=== PATIENT | female | born 1960 | race Two or more races ===

== ENCOUNTER 2017-07-25 19:20 | Emergency (ER) | payer MEDICAID ==
[~2017-07-25] VITALS: Ht 165.1 cm; Wt 72.6 kg
[~2017-07-25 19:20] MED LIST: ASPIRIN81 MG ORAL; AZITHROMYCIN250 MG ORAL; CLINDAMYCIN HC150 MG ORAL; MACROBID100 MG ORAL; NITROFURANTOIN100 M2 ORAL; NKM; NORCO 5-325 TA1 EACH ORAL; PHENAZOPYRIDIN200 MG ORAL; TAMIFLU75 MG ORAL; TOPROL XL25 MG ORAL; magnesium citrate PO
[2017-07-25 19:35] VITALS: BP 118/69
[2017-07-25] MEDS ORDERED: Morphine Sulfate 4mg/ml Inj IVP ONE (20:15)
[2017-07-25 20:46] LABS: BASOPHILS % (AUTO) 1.3 % (0.0-2.0); EOSINOPHILS % (AUTO) 1.6 % (0.0-3.0); LYMPHOCYTES % (AUTO) 23.8 % (20.0-45.0); MEAN CORPUSCULAR HEMOGLOBIN 32.2 PG (27.0-31.0); MEAN CORPUSCULAR HGB CONC 34.5 G/DL (32.0-36.0); MEAN CORPUSCULAR VOLUME 93 FL (80-99); MEAN PLATELET VOLUME 8.8 FL (6.5-10.1); MONOCYTES % (AUTO) 10.6 % (1.0-10.0); NEUTROPHILS % (AUTO) 62.7 % (45.0-75.0); PLATELET COUNT 172 K/UL (150-450); RED BLOOD COUNT 4.36 M/UL (4.20-5.40); RED CELL DISTRIBUTION WIDTH 11.5 % (11.6-14.8); WHITE BLOOD COUNT 6.1 K/UL (4.8-10.8)
[2017-07-25 20:52] LABS: KETONES,URINE NEGATIVE (NEGATIVE); LEUKOCYTE ESTERASE ,URINE NEGATIVE (NEGATIVE); NITRITE,URINE NEGATIVE (NEGATIVE); PH,URINE 8 (4.5-8.0); PROTEIN,URINE NEGATIVE (NEGATIVE); UROBILINOGEN,URINE NORMAL MG/DL (0.0-1.0)
[2017-07-25 20:53] LABS: APPEARANCE,URINE CLEAR
[2017-07-25 21:06] LABS: ALANINE AMINOTRANSFERASE 14 U/L (3-33); ALBUMIN/GLOBULIN RATIO 1.9 (1.0-2.7); ANION GAP 13 (5-15); ASPARTATE AMINO TRANSFERASE 17 U/L (5-40); CALCIUM 9.1 mg/dL (8.6-10.2); CARBON DIOXIDE 26 mEQ/L (20-30); CHLORIDE 100 mEQ/L (98-107); GLOMERULAR FILTRATION RATE 57.6 mL/min (>60); HEMOLYSIS 4; LIPASE 38 U/L (< 60); POTASSIUM 3.9 mEQ/L (3.4-4.9); SODIUM 139 mEQ/L (135-145); TOTAL PROTEIN 6.5 g/dL (6.6-8.7)
[2017-07-25 21:20] VITALS: BP 129/93
[2017-07-25] MEDS ORDERED: ACETAMINOPHEN-1 EAC1 ORAL (22:08)
[2017-07-25] MEDS ORDERED: KEFLEX500 MG ORAL (22:08)
[2017-07-25 22:35] VITALS: BP 117/62
--- NOTE | 2017-07-26 09:59 | Diagnostic Imaging Report ---
Indication: Abdominal pain Technique: Continuous helical transaxial imaging of the abdomen and pelvis was obtained from the lung bases to the pubic symphysis. No intravenous contrast was administered. Coronal 2-D reformats were also obtained. Total Dose length Product (DLP): [address] Dose Index Volume (CTDIvol): 15.2, 0.15 mGy Comparison: 06/21/16 Findings: There is a persistent dilatation of the left renal pelvis as well as dilatation of the calyces consistent with hydronephrosis with high density intraluminally, which may be on the basis of recently administered contrast material or blood. Abrupt transition with a normal caliber ureter again noted at the UPJ. There is new left perinephric stranding which could be due to obstruction or infection/pyelonephritis. Please correlate clinically. There is no obstructing stone. The configuration of the dilated renal pelvis and calyces is unchanged from the last study in 2016. The right kidney is unremarkable. The urinary bladder is nondistended. Normal appendix noted. No free fluid or free air identified. Lung bases are clear. Gallbladder is unremarkable. Uterus is absent. There is narrowing of intervertebral discs and accompanying endplate osteophyte formation. Hypertrophied facet joints also demonstrated. Impression: Left perinephric stranding and hydronephrosis secondary to UPJ obstruction and/or pyelonephritis. Note that the hydronephrosis and abrupt transition at the UPJ configuration is unchanged from previous 2016 CT. Development of intraluminal high density may represent blood or recently administered contrast material. Clinical correlation is needed. No obstructing stone identified. Status post hysterectomy Spondylosis The CT scanner at [facility] is accredited by the [employer] and the scans are performed using dose optimization techniques as appropriate to a performed exam including Automatic Exposure control.
--- NOTE | 2017-07-26 14:35 | Emergency Room Report ---
History of Present Illness General Chief Complaint: Back Pain-No Injury Source: Patient Present Illness HPI 56-year-old female presents ED complaining of flank pain. States that left flank pain started around 12 PM today after she had an MRI with IV contrast done as outpatient. Patient MRI of her head for persistent headaches ordered by her PMD. Patient states right after the IV contrast was administered she developed left flank pain. Pain is throbbing, 8/10, nonradiating. No other aggravating factors. Denies dysuria or hematuria. Patient states she's had kidney pain in the past and has been there for for the same reason. Denies any other associated symptom Allergies: Coded Allergies: No Known Allergies (Unverified , 10/13/12) Patient History Past Medical History: none Past Surgical History: none Pertinent Family History: none Social History: Denies: smoking, alcohol use, drug use Now: No Immunizations: UTD Reviewed Nursing Documentation: PMH: Agreed, PSxH: Agreed Nursing Documentation-PMH Hx Cardiac Problems: Yes Review of Systems All Other Systems: negative except mentioned in HPI Physical Exam Vital Signs Date Time Temp Pulse Resp B/P (MAP) Pulse Ox O2 Delivery O2 Flow Rate FiO2 07/25/17 19:29 98.4 65 18 125/78 99 Room Air Sp02 EP Interpretation: reviewed, normal General Appearance: alert, GCS 15, non-toxic, mild distress Head: normocephalic, atraumatic Eyes: bilateral eye normal inspection, bilateral eye PERRL ENT: hearing grossly normal, normal pharynx, no angioedema, normal voice Neck: full range of motion, supple/symm/no masses Respiratory: chest non-tender, lungs clear, normal breath sounds, speaking full sentences Cardiovascular #1: regular rate, rhythm, no edema Cardiovascular #2: 2+ carotid (R), 2+ carotid (L), 2+ radial (R), 2+ radial (L) , 2+ dorsalis pedis (R), 2+ dorsalis pedis (L) Gastrointestinal: normal bowel sounds, non tender, soft, non-distended, no guarding, no rebound Rectal: deferred Genitourinary: normal inspection, CVA tenderness (L) Musculoskeletal: back normal, gait/station normal, normal range of motion, non- tender Neurologic: alert, oriented x3, responsive, motor strength/tone normal, sensory intact, speech normal Psychiatric: judgement/insight normal, memory normal, mood/affect normal, no suicidal/homicidal ideation Reflexes: 3+ bicep (R), 3+ bicep (L), 3+ tricep (R), 3+ tricep (L), 3+ knee (R) , 3+ knee (L) Skin: normal color, no rash, warm/dry, well hydrated Lymphatic: no adenopathy Medical Decision Making Diagnostic Impression: Primary Impression: Hydronephrosis of left kidney Additional Impression: Flank pain ER Course Hospital Course 56-year-old female presents with left flank pain after contrast administration Differential diagnosis includes- kidney stone, pyelonephritis, muscle strain Clinical course Patient placed on stretcher. After initial history and physical I ordered labs , IV fluids, pain medications and CT scan Labs - no leukocytosis, electrolytes ok, LFTs normal, UA unremarkable CT scan shows perinephric stranding around the left kidney consistent with contrast administration. Cannot rule out pyelonephritis Discussed findings with urologist Dr. Gonzalez; he agrees that with normal creatinine and negative UA patient can be discharged. Recommend followup with urology. Recommend antibiotics and urine culture I discussed findings with the patient. She understands the findings I feel this is a highly complex case requiring extensive working including EKG/ Rhythm strip, Xray/CT/US, Blood/urine lab work, repeat exams while in ED, and administration of strong opiates/narcotics for pain control, admission to hospital or close patient follow up. Diagnosis - hydronephrosis of left kidney, flank pain Stable and discharged to home with Rx Tylenol #3, Keflex. Followup with PMD/ urology. Return to ED if symptoms recur or worsen Labs Test 07/25/17 19:45 07/25/17 19:50 Urine Color Pale yellow Urine Appearance Clear Urine pH 8 (4.5-8.0) Urine Specific [place] 1.010 (1.005-1.035) Urine Protein Negative (NEGATIVE) Urine Glucose (UA) Negative (NEGATIVE) Urine Ketones Negative (NEGATIVE) Urine Occult Blood Negative (NEGATIVE) Urine Nitrite Negative (NEGATIVE) Urine Bilirubin Negative (NEGATIVE) Urine Urobilinogen Normal MG/DL (0.0-1.0) Urine Leukocyte Esterase Negative (NEGATIVE) White Blood Count 6.1 K/UL (4.8-10.8) Red Blood Count 4.36 M/UL (4.20-5.40) Hemoglobin 14.0 G/DL (12.0-16.0) Hematocrit 40.7 % (37.0-47.0) Mean Corpuscular Volume 93 FL (80-99) Mean Corpuscular Hemoglobin 32.2 PG (27.0-31.0) Mean Corpuscular Hemoglobin Concent 34.5 G/DL (32.0-36.0) Red Cell Distribution Width 11.5 % (11.6-14.8) Platelet Count 172 K/UL (150-450) Mean Platelet Volume 8.8 FL (6.5-10.1) Neutrophils (%) (Auto) 62.7 % (45.0-75.0) Lymphocytes (%) (Auto) 23.8 % (20.0-45.0) Monocytes (%) (Auto) 10.6 % (1.0-10.0) Eosinophils (%) (Auto) 1.6 % (0.0-3.0) Basophils (%) (Auto) 1.3 % (0.0-2.0) Sodium Level 139 mEQ/L (135-145) Potassium Level 3.9 mEQ/L (3.4-4.9) Chloride Level 100 mEQ/L (98-107) Carbon Dioxide Level 26 mEQ/L (20-30) Anion Gap 13 (5-15) Blood Urea Nitrogen 14 mg/dL (7-23) Creatinine 1.0 mg/dL (0.5-0.9) Estimat Glomerular Filtration Rate 57.6 mL/min (>60) Glucose Level 90 mg/dL (74-106) Calcium Level 9.1 mg/dL (8.6-10.2) Total Bilirubin < 0.2 mg/dL (0.0-1.2) Aspartate Amino Transf (AST/SGOT) 17 U/L (5-40) Alanine Aminotransferase (ALT/SGPT) 14 U/L (3-33) Alkaline Phosphatase 55 U/L (35-104) Total Protein 6.5 g/dL (6.6-8.7) Albumin 4.3 g/dL (3.5-5.2) Globulin 2.2 g/dL Albumin/Globulin Ratio 1.9 (1.0-2.7) Lipase 38 U/L (< 60) CT/MRI/US Diagnostic Results CT/MRI/US Diagnostic Results : Imaging Test Ordered: CT A/P Impression perinephric stranding around L kidney c/w contrast administration. cannot rule out pyelonephritis Last Vital Signs Date Time Temp Pulse Resp B/P (MAP) Pulse Ox O2 Delivery O2 Flow Rate FiO2 07/25/17 22:35 98.3 65 16 117/62 99 Room Air Status: improved Disposition: HOME, SELF-CARE Condition: Stable Scripts Acetaminophen With Codeine (T#3) (TYLENOL #3 TAB*) Y Tab 1 TAB ORAL Q8H Y for For Pain, #20 TAB Prov: EUNICE VILLARREAL M.D. 07/25/17 Cephalexin* (KEFLEX*) 500 Mg Capsule 500 MG ORAL Q6H, #28 CAP 0 Refills Prov: EUNICE VILLARREAL M.D. 07/25/17 Referrals: [facility],REFERRING (PCP) Kody Gonzalez MD Patient Instructions: Hydronephrosis EUNICE VILLARREAL M.D. Jul 26, 2017 14:35
== END 2017-07-25 22:35 | disposition home or self-care (01) ==
LOC: EMR 20:01
DX: N13.30 Unspecified hydronephrosis (principal); Z90.710 Acquired absence of both cervix and uterus; M47.9 Spondylosis, unspecified
CPT/HCPCS: 36415; 74176; 80053; 81003; 83690; 85025; 96374; 96375; 99284; J2270; J2405

== ENCOUNTER 2017-08-09 03:31 | Emergency (ER) | payer MEDICAID ==
[~2017-08-09] VITALS: Ht 165.1 cm; Wt 71.7 kg
[~2017-08-09 03:31] MED LIST changes: +ACETAMINOPHEN-1 EAC1 ORAL; +KEFLEX500 MG ORAL
[2017-08-09 03:45] VITALS: BP 127/87
[2017-08-09 04:26] LABS: EOSINOPHILS % (AUTO) 1.9 % (0.0-3.0); LYMPHOCYTES % (AUTO) 28.5 % (20.0-45.0); MEAN CORPUSCULAR HEMOGLOBIN 31.3 PG (27.0-31.0); MEAN CORPUSCULAR HGB CONC 33.3 G/DL (32.0-36.0); MEAN CORPUSCULAR VOLUME 94 FL (80-99); MEAN PLATELET VOLUME 7.4 FL (6.5-10.1); MONOCYTES % (AUTO) 7.9 % (1.0-10.0); NEUTROPHILS % (AUTO) 60.8 % (45.0-75.0); PLATELET COUNT 183 K/UL (150-450); RED BLOOD COUNT 4.29 M/UL (4.20-5.40); RED CELL DISTRIBUTION WIDTH 11.8 % (11.6-14.8); WHITE BLOOD COUNT 7.6 K/UL (4.8-10.8)
--- NOTE | 2017-08-09 04:26 | Emergency Room Report ---
History of Present Illness General Chief Complaint: Back Pain-No Injury Source: Patient Present Illness HPI 56-year-old female with left-sided chronic hydronephrosis presenting with left flank pain. Patient was seen in the emergency room on July 25 after getting IV contrast, patient developed left knee pain at that time. Patient's CAT scan showed persistent hydronephrosis on the left side, unchanged from prior CT in 2016, there was no obstructing stone. Patient was diagnosed with left hydronephrosis/left pyelonephritis Patient not complaining of left flank pain, developed since 10 PM last night, left flank nonradiating. No fever no chills no nausea vomiting. No dysuria or hematuria Allergies: Coded Allergies: No Known Allergies (Unverified , 10/13/12) Patient History Past Medical History: see triage record Past Surgical History: none Pertinent Family History: none Reviewed Nursing Documentation: PMH: Agreed, PSxH: Agreed Nursing Documentation-PMH Hx Cardiac Problems: Yes Review of Systems All Other Systems: negative except mentioned in HPI Physical Exam Vital Signs Date Time Temp Pulse Resp B/P (MAP) Pulse Ox O2 Delivery O2 Flow Rate FiO2 08/09/17 03:36 97.5 66 18 127/87 99 Room Air Sp02 EP Interpretation: reviewed, normal General Appearance: normal inspection, well appearing, no apparent distress, alert, GCS 15, non-toxic Head: normocephalic, atraumatic Eyes: bilateral eye normal inspection, bilateral eye PERRL, bilateral eye EOMI ENT: normal ENT inspection, normal pharynx, normal voice, moist mucus membranes Neck: normal inspection, full range of motion, supple Respiratory: normal inspection, lungs clear, normal breath sounds, no respiratory distress, no retraction, no wheezing, speaking full sentences, chest symmetrical Cardiovascular #1: normal inspection, regular rate, rhythm, no edema, normal capillary refill Cardiovascular #2: 2+ radial (R), 2+ radial (L) Gastrointestinal: normal inspection, non tender, soft, non-distended, no guarding Genitourinary: other - Mild left CVA tenderness Musculoskeletal: normal inspection, back normal, normal range of motion, non- tender Neurologic: normal inspection, alert, oriented x3, responsive, motor strength/ tone normal, sensory intact, normal gait, speech normal Psychiatric: normal inspection, judgement/insight normal, memory normal Skin: normal inspection, normal color, no rash, warm/dry, well hydrated, normal turgor Medical Decision Making Diagnostic Impression: Primary Impression: Hydronephrosis of left kidney Additional Impression: Pyelonephritis ER Course 56-year-old female with left flank pain History of left-sided hydronephrosis and 2016 DDX: Chronic left hydronephrosis due to unknown origin Pyelonephritis/UTI/kidney stone Plan: Obtain labs, ua, ucx IV fluids pain control ER course: Patient has remained stable during ED stay. Bedside renal ultrasound showing left-sided moderate/severe hydronephrosis, right side normal Patient has had prior CTs in the past showing this left-sided moderate to severe hydronephrosis Patient has 15-20 WBCs in urine, mild left-sided CVA tenderness, will prescribed Bactrim Patient states that she feels much better after fluids and pain medicine Continues to appear nontoxic, vital signs stable Will discharge Disposition: Patient is to be discharged to home. Prescriptions given are bactrim Patient is instructed to follow up with their primary care doctor within 5 days. Patient is instructed to follow up with urology within 2 days. Strict return precautions discussed with patient such as fever, chills, worsening/severe pain, nausea, vomiting, which may indicate severe illness. Patient verbalizes understanding and agrees with plan. Please note that this Emergency Department Report was dictated using [employer] steamer technology software, occasionally this can lead to erroneous entry secondary to interpretation by the dictation equipment Laboratory Tests Test 08/09/17 03:40 08/09/17 04:10 Urine Color Pale yellow Urine Appearance Clear Urine pH 6 (4.5-8.0) Urine Specific [place] 1.025 (1.005-1.035) Urine Protein Negative (NEGATIVE) Urine Glucose (UA) Negative (NEGATIVE) Urine Ketones Negative (NEGATIVE) Urine Occult Blood Negative (NEGATIVE) Urine Nitrite Negative (NEGATIVE) Urine Bilirubin Negative (NEGATIVE) Urine Urobilinogen Normal MG/DL (0.0-1.0) Urine Leukocyte Esterase 2+ (NEGATIVE) H Urine RBC 0-2 /HPF (0 - 2) Urine WBC 15-20 /HPF (0 - 2) H Urine Squamous Epithelial Cells Few /LPF (NONE/OCC) Urine Bacteria Few /HPF (NONE) White Blood Count 7.6 K/UL (4.8-10.8) Red Blood Count 4.29 M/UL (4.20-5.40) Hemoglobin 13.4 G/DL (12.0-16.0) Hematocrit 40.4 % (37.0-47.0) Mean Corpuscular Volume 94 FL (80-99) Mean Corpuscular Hemoglobin 31.3 PG (27.0-31.0) H Mean Corpuscular Hemoglobin Concent 33.3 G/DL (32.0-36.0) Red Cell Distribution Width 11.8 % (11.6-14.8) Platelet Count 183 K/UL (150-450) Mean Platelet Volume 7.4 FL (6.5-10.1) Neutrophils (%) (Auto) 60.8 % (45.0-75.0) Lymphocytes (%) (Auto) 28.5 % (20.0-45.0) Monocytes (%) (Auto) 7.9 % (1.0-10.0) Eosinophils (%) (Auto) 1.9 % (0.0-3.0) Basophils (%) (Auto) 1.0 % (0.0-2.0) Sodium Level 144 mEQ/L (135-145) Potassium Level 3.9 mEQ/L (3.4-4.9) Chloride Level 108 mEQ/L (98-107) H Carbon Dioxide Level 25 mEQ/L (20-30) Anion Gap 11 (5-15) Blood Urea Nitrogen 26 mg/dL (7-23) H Creatinine 1.0 mg/dL (0.5-0.9) H Estimate Glomerular Filtration Rate 57.6 mL/min (>60) Glucose Level 95 mg/dL (74-106) Calcium Level 9.1 mg/dL (8.6-10.2) Total Bilirubin 0.3 mg/dL (0.0-1.2) Aspartate Amino Transferase (AST) 13 U/L (5-40) Alanine Aminotransferase (ALT) 12 U/L (3-33) Alkaline Phosphatase 52 U/L (35-104) Total Protein 6.1 g/dL (6.6-8.7) L Albumin 4.1 g/dL (3.5-5.2) Globulin 2.0 g/dL Albumin/Globulin Ratio 2.0 (1.0-2.7) Last Vital Signs Date Time Temp Pulse Resp B/P (MAP) Pulse Ox O2 Delivery O2 Flow Rate FiO2 08/09/17 03:36 97.5 66 18 127/87 99 Room Air Disposition: HOME, SELF-CARE Condition: Improved Scripts Trimethoprim/Sulfamethoxazole 160/800* (BACTRIM DS TABLET*) 1 Each Tablet 1 TAB ORAL Q12H for 7 Days, #14 TAB 0 Refills Prov: Arnol Grullon M.D. 08/09/17 Referrals: NON PHYSICIAN (PCP) Arnol Grullon M.D. Aug 09, 2017 04:26
[2017-08-09] MEDS ORDERED: Morphine Sulfate 4mg/ml Inj IVP ONE (04:30)
[2017-08-09 04:38] LABS: APPEARANCE,URINE CLEAR; KETONES,URINE NEGATIVE (NEGATIVE); LEUKOCYTE ESTERASE ,URINE 2+ (NEGATIVE); NITRITE,URINE NEGATIVE (NEGATIVE); PH,URINE 6 (4.5-8.0); PROTEIN,URINE NEGATIVE (NEGATIVE); UROBILINOGEN,URINE NORMAL MG/DL (0.0-1.0)
[2017-08-09 04:46] LABS: CALCIUM 9.1 mg/dL (8.6-10.2); GLOMERULAR FILTRATION RATE 57.6 mL/min (>60); POTASSIUM 3.9 mEQ/L (3.4-4.9); TOTAL PROTEIN 6.1 g/dL (6.6-8.7)
[2017-08-09 04:53] LABS: BACTERIA,URINE FEW /HPF; RBC,URINE 0-2 /HPF (0 - 2); SQUAMOUS EPITHELIAL CELL,UR FEW /LPF (NONE/OCC); WBC,URINE 15-20 /HPF (0 - 2)
[2017-08-09] MEDS ORDERED: BACTRIM DS TAB1 EAC1 ORAL (06:06)
[2017-08-09 06:17] VITALS: BP 121/84
== END 2017-08-09 06:17 | disposition home or self-care (01) ==
LOC: EMR 03:55
DX: N13.30 Unspecified hydronephrosis (principal); N12 Tubulo-interstitial nephritis, not specified as acute or chronic
CPT/HCPCS: 36415; 80053; 81003; 85025; 87086; 87181; 96361; 96374; 99284; J2270

== ENCOUNTER 2018-05-05 21:28 | Emergency (ER) | payer MEDICAID ==
[~2018-05-05] VITALS: Ht 165.1 cm; Wt 71.2 kg
[~2018-05-05 21:28] MED LIST changes: +BACTRIM DS TAB1 EAC1 ORAL
[2018-05-05] MEDS ORDERED: Morphine Sulfate 4mg/ml Inj IVP ONE (22:15)
--- NOTE | 2018-05-05 22:27 | Emergency Room Report ---
History of Present Illness General Chief Complaint: Back Pain-No Injury Source: Patient Present Illness HPI This is a 57-year-old female with a history of left hydronephrosis. She scheduled for stent placement/surgery pending authorization. She presents with left flank pain is been ongoing for 2 days. Worse with movement. No dysuria frequency. Similar symptom in the past. No relief with ibuprofen. No nausea no vomiting. Pain is 9 out of 10. Denies any hematuria or fever. She has multiple CT scan in the past which is negative for stone but has stenosis and hydronephrosis Allergies: Coded Allergies: No Known Allergies (Unverified , 10/13/12) Patient History Past Medical History: see triage record, old chart reviewed Past Surgical History: other Pertinent Family History: none Social History: Denies: smoking Now: No Immunizations: other Reviewed Nursing Documentation: PMH: Agreed; PSxH: Agreed Nursing Documentation-PMH Hx Cardiac Problems: Yes Review of Systems Eye: Denies: eye pain, blurred vision ENT: Denies: ear pain, nose congestion, throat swelling Respiratory: Denies: cough, shortness of breath Cardiovascular: Denies: chest pain, palpitations Gastrointestinal: Denies: abdominal pain, diarrhea, nausea, vomiting Genitourinary: Reports: pain Musculoskeletal: Denies: back pain, joint pain Skin: Denies: rash Neurological: Denies: headache, numbness Endocrine: Denies: increased thirst, increased urine Hematologic/Lymphatic: Denies: easy bruising All Other Systems: negative except mentioned in HPI Physical Exam Vital Signs Date Time Temp Pulse Resp B/P (MAP) Pulse Ox O2 Delivery O2 Flow Rate FiO2 05/05/18 21:37 98.0 61 18 93/54 96 Room Air 98.1 vitals unremarkable Sp02 EP Interpretation: reviewed, normal General Appearance: well appearing, no apparent distress, alert Head: normocephalic, atraumatic Eyes: bilateral eye PERRL, bilateral eye EOMI ENT: hearing grossly normal, normal pharynx Neck: full range of motion, supple, no meningismus Respiratory: chest non-tender, lungs clear, normal breath sounds Cardiovascular #1: regular rate, rhythm, no murmur Gastrointestinal: normal bowel sounds, non tender, no mass, no organomegaly, no bruit, non-distended Musculoskeletal: back normal, gait/station normal, normal range of motion Psychiatric: mood/affect normal Skin: warm/dry Medical Decision Making Diagnostic Impression: Primary Impression: Hydronephrosis of left kidney Additional Impression: UTI (lower urinary tract infection) ER Course Patient with left flank pain. She does have a mild UTI. She is increased risk for infection secondary to stenosis and hydronephrosis. No evidence of kidney failure. We'll discharge home. Her pain is well-controlled now. Lab Results Impression labs unremarkable Last Vital Signs Date Time Temp Pulse Resp B/P (MAP) Pulse Ox O2 Delivery O2 Flow Rate FiO2 05/05/18 21:37 98.0 61 18 93/54 96 Room Air 98.1 Status: improved Disposition: HOME, SELF-CARE Condition: Stable Scripts Cephalexin* (KEFLEX*) 500 Mg Capsule 500 MG ORAL TID, #21 CAP Prov: NANI CHATTERJEE M.D. 05/05/18 Hydrocodone/Acetaminophen 5-325* (HYDROCODONE/ACETAMINOPHEN 5-325*) 1 Each Tablet 1 TAB ORAL Q6H PRN for For Pain, #15 TAB 0 Refills Prov: NANI CHATTERJEE M.D. 05/05/18 Additional Instructions: follow-up your doctor in 7 days. Return if symptom worsen. NANI CHATTERJEE M.D. May 05, 2018 22:27
[2018-05-05 22:28] LABS: BASOPHILS % (AUTO) 1.3 % (0.0-2.0); BILIRUBIN, URINE NEGATIVE (NEGATIVE); COLOR,URINE AMBER; EOSINOPHILS % (AUTO) 3.3 % (0.0-3.0); GLUCOSE, URINE (UA) NEGATIVE (NEGATIVE); HEMATOCRIT 39.1 % (37.0-47.0); KETONES,URINE NEGATIVE (NEGATIVE); LEUKOCYTE ESTERASE ,URINE 1+ (NEGATIVE); LYMPHOCYTES % (AUTO) 45.3 % (20.0-45.0); MEAN CORPUSCULAR VOLUME 93 FL (80-99); MONOCYTES % (AUTO) 7.2 % (1.0-10.0); NEUTROPHILS % (AUTO) 42.8 % (45.0-75.0); NITRITE,URINE NEGATIVE (NEGATIVE); PH,URINE 6 (4.5-8.0); PLATELET COUNT 162 K/UL (150-450); PROTEIN,URINE 1+ (NEGATIVE); RED BLOOD COUNT 4.19 M/UL (4.20-5.40); RED CELL DISTRIBUTION WIDTH 11.4 % (11.6-14.8); UROBILINOGEN,URINE 1 MG/DL (0.0-1.0); WHITE BLOOD COUNT 6.6 K/UL (4.8-10.8)
[2018-05-05 22:32] LABS: APPEARANCE,URINE SLIGHTLY CLOUDY
[2018-05-05 22:42] LABS: ANION GAP 9 mmol/L (5-15); BLOOD UREA NITROGEN 21 mg/dL (7-18); CALCIUM 8.5 MG/DL (8.5-10.1); CARBON DIOXIDE 27 MMOL/L (21-32); CHLORIDE 108 MMOL/L (98-107); CREATININE 0.8 MG/DL (0.55-1.30); POTASSIUM 3.6 MMOL/L (3.5-5.1); SODIUM 144 MMOL/L (136-145)
[2018-05-05] MEDS ORDERED: cefTRIAXone 1 GM in NS 55 ML IVPB ONE (22:45)
[2018-05-05 22:55] VITALS: BP 102/56
[2018-05-05] MEDS ORDERED: CEPHALEXIN500 MG ORAL (23:01)
[2018-05-05] MEDS ORDERED: HYDROCODON-ACE1 EA15 ORAL (23:01)
[2018-05-05 23:55] VITALS: BP 101/57
[2018-05-06 01:13] VITALS: BP 101/57
== END 2018-05-06 01:10 | disposition home or self-care (01) ==
LOC: EMR 21:55
DX: N13.30 Unspecified hydronephrosis (principal); N39.0 Urinary tract infection, site not specified
CPT/HCPCS: 36415; 80048; 81003; 85025; 87086; 96360; 96365; 96374; 96375; 99284; J0696; J2270; J2405

== ENCOUNTER 2018-05-06 19:26 | Emergency (ER) | payer MEDICAID ==
[~2018-05-06] VITALS: Ht 165.1 cm; Wt 71.2 kg
[~2018-05-06 19:26] MED LIST changes: +CEPHALEXIN500 MG ORAL; +HYDROCODON-ACE1 EA15 ORAL
[2018-05-06 20:00] VITALS: BP 125/68
[2018-05-06] MEDS ORDERED: Lidocaine 2% 100mg/5ml Carp IV ONE (20:00)
[2018-05-06] MEDS ORDERED: Morphine Sulfate 4mg/ml Inj IVP ONE (20:00)
[2018-05-06] MEDS ORDERED: Ketorolac 30mg Inj IV ONE (20:00)
[2018-05-06 20:22] LABS: APPEARANCE,URINE CLEAR; BILIRUBIN, URINE NEGATIVE (NEGATIVE); COLOR,URINE PALE YELLOW; GLUCOSE, URINE (UA) NEGATIVE (NEGATIVE); KETONES,URINE NEGATIVE (NEGATIVE); LEUKOCYTE ESTERASE ,URINE 1+ (NEGATIVE); NITRITE,URINE NEGATIVE (NEGATIVE); PH,URINE 7 (4.5-8.0); PROTEIN,URINE NEGATIVE (NEGATIVE); UROBILINOGEN,URINE NORMAL MG/DL (0.0-1.0)
[2018-05-06 20:32] LABS: BASOPHILS % (AUTO) 1.2 % (0.0-2.0); EOSINOPHILS % (AUTO) 2.1 % (0.0-3.0); HEMATOCRIT 41.2 % (37.0-47.0); HEMOGLOBIN 13.7 G/DL (12.0-16.0); LYMPHOCYTES % (AUTO) 35.7 % (20.0-45.0); MEAN CORPUSCULAR VOLUME 92 FL (80-99); MONOCYTES % (AUTO) 8.1 % (1.0-10.0); NEUTROPHILS % (AUTO) 52.9 % (45.0-75.0); PLATELET COUNT 165 K/UL (150-450); RED BLOOD COUNT 4.46 M/UL (4.20-5.40); RED CELL DISTRIBUTION WIDTH 11.5 % (11.6-14.8); WHITE BLOOD COUNT 9.6 K/UL (4.8-10.8)
[2018-05-06 20:41] LABS: ANION GAP 7 mmol/L (5-15); BLOOD UREA NITROGEN 16 mg/dL (7-18); CALCIUM 8.7 MG/DL (8.5-10.1); CARBON DIOXIDE 28 MMOL/L (21-32); CHLORIDE 106 MMOL/L (98-107); POTASSIUM 3.9 MMOL/L (3.5-5.1); SODIUM 141 MMOL/L (136-145)
[2018-05-06 20:55] LABS: ALANINE AMINOTRANSFERASE 26 U/L (12-78); ALBUMIN 3.8 G/DL (3.4-5.0); ALBUMIN/GLOBULIN RATIO 1.3 (1.0-2.7); ALKALINE PHOSPHATASE 56 U/L (46-116); ASPARTATE AMINO TRANSFERASE 18 U/L (15-37); BILIRUBIN,TOTAL 0.2 MG/DL (0.2-1.0)
[2018-05-06 21:43] VITALS: BP 125/68
--- NOTE | 2018-05-07 10:51 | Diagnostic Imaging Report ---
Indication: Hydronephrosis. Follow-up. Abdominal pain Technique: Grayscale and duplex Doppler imaging of the kidneys performed. Comparison: CT 07/25/2017 Findings: There is persistent moderate hydronephrosis in the left kidney demonstrated. This was noted on 07/25/2017 CT abdomen and pelvis. The right kidney is unremarkable. The left kidney is enlarged measuring 13.5 cm. Right kidney is 11.3 cm. IVC and bladder appear unremarkable. IMPRESSION: Moderate left hydronephrosis.
--- NOTE | 2018-05-08 05:39 | Emergency Room Report ---
History of Present Illness General Chief Complaint: Pain Source: Patient Present Illness HPI Patient is a 57-year-old female who presented after increased flank pain. Patient reports having prior history of kidney stones. Patient recently started on antibiotics after a reported infection from renal stones. Patient was noted to have prior history of hydronephrosis on left kidney.The patient states that he had been having increased patient states she been having increased pain which was not relieved by medications. Patient had not been having any fever or vomiting.The patient reports having previous procedure scheduling for management of stone. Allergies: Coded Allergies: No Known Allergies (Unverified , 10/13/12) Patient History Last Menstrual Period: n/a Reviewed Nursing Documentation: PMH: Agreed; PSxH: Agreed Nursing Documentation-PM Past Medical History: No History, Except For Hx Cardiac Problems: Yes Review of Systems All Other Systems: negative except mentioned in HPI Physical Exam Vital Signs Date Time Temp Pulse Resp B/P (MAP) Pulse Ox O2 Delivery O2 Flow Rate FiO2 05/06/18 19:37 97.9 55 16 132/78 97 Room Air 97.9 General Appearance: well appearing, no apparent distress, alert, GCS 15 Head: normocephalic, atraumatic ENT: hearing grossly normal, normal voice Neck: full range of motion, supple Respiratory: no respiratory distress, speaking full sentences Cardiovascular #1: normal inspection Gastrointestinal: normal inspection, normal bowel sounds, non tender Musculoskeletal: no calf tenderness Neurologic: normal gait Psychiatric: mood/affect normal Skin: no rash Medical Decision Making Diagnostic Impression: Primary Impression: Hydronephrosis, left ER Course Patient presented for flank pain. Differential diagnosis included was not limited to pneumonia, renal stone, rib fracture, pulmonary embolism, ulcer, enteritis, pyelonephritis among others. Because of complexity of patient's case laboratory testing and imaging studies were ordered. Abdominal ultrasound showed evidence of continued left-sided hydronephrosis. Patient was noted to have prior history of stones. Patient urine appears to be less infected. The patient was offered admission for further evaluation and management of stones and she stated she did not want to be hospitalized. The patient is advised to return if she began having worsening pain, persistent vomiting or change mind about being admitted. Labs Test 05/06/18 19:50 White Blood Count 9.6 K/UL (4.8-10.8) Red Blood Count 4.46 M/UL (4.20-5.40) Hemoglobin 13.7 G/DL (12.0-16.0) Hematocrit 41.2 % (37.0-47.0) Mean Corpuscular Volume 92 FL (80-99) Mean Corpuscular Hemoglobin 30.7 PG (27.0-31.0) Mean Corpuscular Hemoglobin Concent 33.2 G/DL (32.0-36.0) Red Cell Distribution Width 11.5 % (11.6-14.8) Platelet Count 165 K/UL (150-450) Mean Platelet Volume 7.9 FL (6.5-10.1) Neutrophils (%) (Auto) 52.9 % (45.0-75.0) Lymphocytes (%) (Auto) 35.7 % (20.0-45.0) Monocytes (%) (Auto) 8.1 % (1.0-10.0) Eosinophils (%) (Auto) 2.1 % (0.0-3.0) Basophils (%) (Auto) 1.2 % (0.0-2.0) Urine Color Pale yellow Urine Appearance Clear Urine pH 7 (4.5-8.0) Urine Specific [place] 1.010 (1.005-1.035) Urine Protein Negative (NEGATIVE) Urine Glucose (UA) Negative (NEGATIVE) Urine Ketones Negative (NEGATIVE) Urine Occult Blood Negative (NEGATIVE) Urine Nitrite Negative (NEGATIVE) Urine Bilirubin Negative (NEGATIVE) Urine Urobilinogen Normal MG/DL (0.0-1.0) Urine Leukocyte Esterase 1+ (NEGATIVE) Urine RBC 0-2 /HPF (0 - 2) Urine WBC 2-4 /HPF (0 - 2) Urine Squamous Epithelial Cells Few /LPF (NONE/OCC) Urine Bacteria Few /HPF (NONE) Sodium Level 141 MMOL/L (136-145) Potassium Level 3.9 MMOL/L (3.5-5.1) Chloride Level 106 MMOL/L (98-107) Carbon Dioxide Level 28 MMOL/L (21-32) Anion Gap 7 mmol/L (5-15) Blood Urea Nitrogen 16 mg/dL (7-18) Creatinine 1.0 MG/DL (0.55-1.30) Estimat Glomerular Filtration Rate 57.4 mL/min (>60) Glucose Level 86 MG/DL (74-106) Calcium Level 8.7 MG/DL (8.5-10.1) Total Bilirubin 0.2 MG/DL (0.2-1.0) Aspartate Amino Transf (AST/SGOT) 18 U/L (15-37) Alanine Aminotransferase (ALT/SGPT) 26 U/L (12-78) Alkaline Phosphatase 56 U/L (46-116) Total Protein 6.7 G/DL (6.4-8.2) Albumin 3.8 G/DL (3.4-5.0) Globulin 2.9 g/dL Albumin/Globulin Ratio 1.3 (1.0-2.7) Lipase 158 U/L (73-393) Last Vital Signs Date Time Temp Pulse Resp B/P (MAP) Pulse Ox O2 Delivery O2 Flow Rate FiO2 05/06/18 21:43 97.9 62 16 125/68 98 Room Air 97.9 Status: improved Disposition: HOME, SELF-CARE Condition: Stable Referrals: [facility]ERR[facility] (PCP) Patient Instructions: Kidney Stones Costa Molina MD May 08, 2018 05:39
== END 2018-05-06 21:43 | disposition home or self-care (01) ==
LOC: EMR 19:41
DX: N13.30 Unspecified hydronephrosis (principal); Z87.442 Personal history of urinary calculi
CPT/HCPCS: 36415; 76770; 80053; 81003; 83690; 85025; 96365; 99284; J1885; J2270; J2405

== ENCOUNTER 2018-08-26 21:18 | Emergency (ER) | payer MEDICAID ==
[~2018-08-26] VITALS: Ht 165.1 cm; Wt 72.6 kg
[2018-08-26 21:30] VITALS: BP 146/85
--- NOTE | 2018-08-26 21:36 | Emergency Room Report ---
History of Present Illness General Chief Complaint: Abdominal Pain Source: Patient, Medical Record Present Illness HPI Is a 57-year-old female who has a history of left hydronephrosis seen on CT scan and ultrasound. This may be secondary to some type of intrinsic versus extrinsic compression. She had not had surgery yet. She said that her doctor recommended robotic surgery versus open laparotomy. She could not find a doctor to that surgery yet. She presents with chief complaint of upper quadrant /left flank pain. Onset for 2 hours. Pain is 9 out of 10. Sharp in nature. Nausea but no vomiting. No fever chills. No urinary complaint. No radiation. Nothing made it better. Nothing made it worse. Allergies: Coded Allergies: No Known Allergies (Unverified , 10/13/12) Patient History Past Medical History: see triage record, old chart reviewed Past Surgical History: other Pertinent Family History: none Social History: Denies: smoking Last Menstrual Period: 2007 Now: No Para: 3 Immunizations: other Reviewed Nursing Documentation: PMH: Agreed; PSxH: Agreed Nursing Documentation-PMH Past Medical History: No History, Except For Hx Cardiac Problems: Yes Review of Systems Eye: Denies: eye pain, blurred vision ENT: Denies: ear pain, nose congestion, throat swelling Respiratory: Denies: cough, shortness of breath Cardiovascular: Denies: chest pain, palpitations Gastrointestinal: Reports: abdominal pain; Denies: diarrhea, nausea, vomiting Musculoskeletal: Denies: back pain, joint pain Skin: Denies: rash Neurological: Denies: headache, numbness Endocrine: Denies: increased thirst, increased urine Hematologic/Lymphatic: Denies: easy bruising All Other Systems: negative except mentioned in HPI Physical Exam Vital Signs Date Time Temp Pulse Resp B/P (MAP) Pulse Ox O2 Delivery O2 Flow Rate FiO2 08/26/18 21:24 97.8 62 16 146/85 99 Room Air 97.9 vitals unremarkable Sp02 EP Interpretation: reviewed, normal General Appearance: well appearing, no apparent distress, alert Head: normocephalic, atraumatic Eyes: bilateral eye PERRL, bilateral eye EOMI ENT: hearing grossly normal, normal pharynx Neck: full range of motion, supple, no meningismus Respiratory: chest non-tender, lungs clear, normal breath sounds Cardiovascular #1: regular rate, rhythm, no murmur Gastrointestinal: normal bowel sounds, no mass, no organomegaly, no bruit, non- distended, tenderness - upper quadrants, mostly left Musculoskeletal: back normal, gait/station normal, normal range of motion Psychiatric: mood/affect normal Skin: warm/dry Medical Decision Making Diagnostic Impression: Primary Impression: Abdominal pain Qualified Codes: R10.10 - Upper abdominal pain, unspecified Additional Impressions: UTI (urinary tract infection) Qualified Codes: N30.00 - Acute cystitis without hematuria Degenerative disc disease, lumbar Degenerative disc disease, thoracic ER Course Patient with upper quadrant mostly left upper quadrant pain. This may be secondary to referred pain from her degenerative disc disease. Could also be secondary to her left hydronephrosis. According to her she did have a stent placed last month. Was only and therefore a few days and had to be removed because of severe pain. Swelling is improved. No evidence of an acute abdomen. No obstruction. We'll discharge home. Lab Results Impression labs normal CT/MRI/US Diagnostic Results CT/MRI/US Diagnostic Results : Imaging Test Ordered: CT abdomennd pelvis Impression Read by radiologist. Slight improvement from prior exam of left hydronephrosis. No acute abdomen. Last Vital Signs Date Time Temp Pulse Resp B/P (MAP) Pulse Ox O2 Delivery O2 Flow Rate FiO2 08/26/18 21:24 97.8 62 16 146/85 99 Room Air 97.9 Status: improved Disposition: HOME, SELF-CARE Condition: Stable Scripts Cephalexin* (KEFLEX*) 500 Mg Capsule 500 MG ORAL TID, #21 CAP Prov: Aman Avila MD 08/26/18 Hydrocodone/Acetaminophen 5-325* (HYDROCODONE/ACETAMINOPHEN 5-325*) 1 Each Tablet 1 TAB ORAL Q6H PRN for For Pain, #15 TAB 0 Refills Prov: Aman Avila MD 08/26/18 Patient Instructions: Abdominal Pain, Adult Additional Instructions: Follow-up with your DrShahida in 2 to 3 days. Return if symptom worsen. Aman Avila MD Aug 26, 2018 21:35
[2018-08-26] MEDS ORDERED: HYDROmorphone 1mg/ml Carpuject IVP ONE (21:45)
[2018-08-26 22:23] LABS: BASOPHILS % (AUTO) 1.6 % (0.0-2.0); EOSINOPHILS % (AUTO) 1.7 % (0.0-3.0); HEMATOCRIT 38.3 % (37.0-47.0); HEMOGLOBIN 13.3 G/DL (12.0-16.0); LYMPHOCYTES % (AUTO) 36.1 % (20.0-45.0); MEAN CORPUSCULAR VOLUME 91 FL (80-99); MONOCYTES % (AUTO) 8.1 % (1.0-10.0); NEUTROPHILS % (AUTO) 52.5 % (45.0-75.0); PLATELET COUNT 168 K/UL (150-450)
[2018-08-26 22:25] LABS: APPEARANCE,URINE CLEAR; BILIRUBIN, URINE NEGATIVE (NEGATIVE); COLOR,URINE PALE YELLOW; GLUCOSE, URINE (UA) NEGATIVE (NEGATIVE); KETONES,URINE NEGATIVE (NEGATIVE); LEUKOCYTE ESTERASE ,URINE 3+ (NEGATIVE); NITRITE,URINE NEGATIVE (NEGATIVE); PH,URINE 6.5 (4.5-8.0); PROTEIN,URINE NEGATIVE (NEGATIVE); UROBILINOGEN,URINE NORMAL MG/DL (0.0-1.0)
[2018-08-26 22:29] LABS: ANION GAP 10 mmol/L (5-15); BLOOD UREA NITROGEN 18 mg/dL (7-18); CALCIUM 9.2 MG/DL (8.5-10.1); CARBON DIOXIDE 25 MMOL/L (21-32); CHLORIDE 105 MMOL/L (98-107); CREATININE 0.6 MG/DL (0.55-1.30); SODIUM 139 MMOL/L (136-145)
[2018-08-26 22:33] LABS: ALANINE AMINOTRANSFERASE 19 U/L (12-78); ALBUMIN 3.5 G/DL (3.4-5.0); ALBUMIN/GLOBULIN RATIO 1.2 (1.0-2.7); ALKALINE PHOSPHATASE 65 U/L (46-116); ASPARTATE AMINO TRANSFERASE 13 U/L (15-37); BILIRUBIN,TOTAL 0.1 MG/DL (0.2-1.0)
[2018-08-26] MEDS ORDERED: cefTRIAXone 1 GM in NS 55 ML IVPB ONE (22:45)
[2018-08-26] MEDS ORDERED: HYDROCODON-ACE1 EA15 ORAL (22:58)
[2018-08-26] MEDS ORDERED: CEPHALEXIN500 MG ORAL (22:58)
[2018-08-26 23:25] VITALS: BP 146/85
--- NOTE | 2018-08-27 10:54 | Diagnostic Imaging Report ---
Indication: Abdominal pain Technique: Continuous helical transaxial imaging of the abdomen and pelvis was obtained from the lung bases to the pubic symphysis. No intravenous contrast was administered. Coronal 2-D reformats were also obtained. Automatic Exposure Control was utilized. Total Dose length Product (DLP): 760.[address] Dose Index Volume (CTDIvol): 15.23 mGy Comparison: 07/25/2017 Findings: No ureteral stone identified. Left hydronephrosis with dilated calyces and a renal pelvis noted once again. There is a extrarenal pelvis in the left kidney measuring about 3.9 cm. This was also noted on the prior occasion. Contrast or hemorrhage was noted within this portion of the upper left collecting system on the prior occasion. This has resolved. The ureter does not appear significantly dilated on the left side beyond the UPJ. The appendix is normal. Gallbladder is noted. There is a questionable stone or sludge in the gallbladder. Lung bases are clear. Diverticula noted in the colon. No evidence of diverticulitis. Urinary bladder is unremarkable. 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 IMPRESSION: Persistent but slightly improved left hydronephrosis and a dilated extrarenal pelvis. Perinephric stranding and inflammation previously demonstrated has resolved. Correlate clinically. Normal appendix Other findings unchanged from the last examination. [facility] has communicated the preliminary results to the Emergency Department. Their findings are largely concordant with this report. The CT scanner at [facility] is accredited by the [employer] and the scans are performed using dose optimization techniques as appropriate to a performed exam including Automatic Exposure control.
== END 2018-08-26 23:30 | disposition home or self-care (01) ==
LOC: EMR 21:58
DX: R10.9 Unspecified abdominal pain (principal); N39.0 Urinary tract infection, site not specified; N13.30 Unspecified hydronephrosis
CPT/HCPCS: 36415; 74176; 80053; 81003; 83690; 85025; 96361; 96365; 96375; 99284; J0696; J1170; J2405

== ENCOUNTER 2019-07-04 10:52 | Emergency (ER) | payer MEDICAID ==
[~2019-07-04] VITALS: Ht 162.6 cm; Wt 72.6 kg
--- NOTE | 2019-07-04 11:05 | NUR ---
ED Nurse Note: PT WALKED IN TO ER TODAY FROM HOME. AOX4. PT C/O LEFT LOWER BACK PAIN, 05/19 X 3-4 DAYS AGO. PT DENIES ANY DIFFICULTY URINATING, PAINFUL URINATION, OR CHANGES IN URINARY FREQUENCY. PT DENIES HEMATURIA, VAGINAL DISCHARGE OR BLEEDING. PT DENIES FEVER, NAUSEA, OR VOMITING.
[2019-07-04] MEDS ORDERED: Morphine Sulfate 4mg/ml Inj (IV USE ONLY) IVP ONE (11:15)
[2019-07-04] MEDS ORDERED: Isovue-300 100ml vial INJ PRN (11:15)
[2019-07-04] MEDS ORDERED: Ketorolac 30mg Inj IV ONE (11:15)
[2019-07-04 11:17] VITALS: BP 108/72
--- NOTE | 2019-07-04 11:21 | Emergency Room Report ---
History of Present Illness General Chief Complaint: Pain Source: Patient, Medical Record Present Illness HPI 58 year old female presents with, sharp aching nature started 3 days ago, no aggravating or alleviating factors, severity is severe, no fevers no chills no pain with urination no abdominal pain, patient states that similar to her previous kidney pain she recently had a surgery 8 months ago which alleviated all the pain however it has returned. Allergies: Coded Allergies: No Known Allergies (Unverified , 10/13/12) Patient History Past Medical History: see triage record Last Menstrual Period: N/A Now: No : 3 Para: 3 Reviewed Nursing Documentation: PMH: Agreed; PSxH: Agreed Nursing Documentation-PMH Hx Cardiac Problems: Yes Review of Systems All Other Systems: negative except mentioned in HPI Physical Exam Vital Signs Date Time Temp Pulse Resp B/P (MAP) Pulse Ox O2 Delivery O2 Flow Rate FiO2 07/04/19 10:57 97.9 60 20 102/68 (79) 97 Room Air Sp02 EP Interpretation: reviewed, normal General Appearance: well appearing, no apparent distress, alert Head: normocephalic, atraumatic Eyes: bilateral eye PERRL, bilateral eye EOMI ENT: uvula midline, moist mucus membranes Neck: supple, thyroid normal, supple/symm/no masses Respiratory: lungs clear, no respiratory distress, no retraction, no accessory muscle use Cardiovascular #1: normal peripheral pulses, regular rate, rhythm, no edema, no gallop, no murmur Gastrointestinal: non tender, soft, no guarding, no rebound Genitourinary: CVA tenderness (L) Musculoskeletal: normal inspection Neurologic: alert, oriented x3 Psychiatric: mood/affect normal Skin: no rash, warm/dry Medical Decision Making Diagnostic Impression: Primary Impression: Flank pain ER Course 58 year old female presents with left flank pain. hx of hydronephrosis. ddx includes diverticulitis, hydronephrosis, kidney stone Patient with no acute processes, labs negative, pain well controlled with toradol. Fluid rehydration. Patient states she will follow-up with her urologist. Cures report ran. Laboratory Tests Test 07/04/19 11:03 07/04/19 11:13 Urine Color Pale yellow Urine Appearance Clear Urine pH 8 (4.5-8.0) Urine Specific [place] 1.010 (1.005-1.035) Urine Protein Negative (NEGATIVE) Urine Glucose (UA) Negative (NEGATIVE) Urine Ketones Negative (NEGATIVE) Urine Blood Negative (NEGATIVE) Urine Nitrite Negative (NEGATIVE) Urine Bilirubin Negative (NEGATIVE) Urine Urobilinogen Normal MG/DL (0.0-1.0) Urine Leukocyte Esterase 1+ (NEGATIVE) H Urine RBC 0 /HPF (0 - 2) Urine WBC 0-2 /HPF (0 - 2) Urine Squamous Epithelial Cells Occasional /LPF Urine Bacteria Occasional /HPF (NONE) White Blood Count 7.5 K/UL (4.8-10.8) Red Blood Count 4.55 M/UL (4.20-5.40) Hemoglobin 14.3 G/DL (12.0-16.0) Hematocrit 43.3 % (37.0-47.0) Mean Corpuscular Volume 95 FL (80-99) Mean Corpuscular Hemoglobin 31.3 PG (27.0-31.0) H Mean Corpuscular Hemoglobin Concent 33.0 G/DL (32.0-36.0) Red Cell Distribution Width 11.9 % (11.6-14.8) Platelet Count 196 K/UL (150-450) Mean Platelet Volume 7.5 FL (6.5-10.1) Neutrophils (%) (Auto) 56.3 % (45.0-75.0) Lymphocytes (%) (Auto) 33.7 % (20.0-45.0) Monocytes (%) (Auto) 7.5 % (1.0-10.0) Eosinophils (%) (Auto) 1.0 % (0.0-3.0) Basophils (%) (Auto) 1.4 % (0.0-2.0) Sodium Level 141 MMOL/L (136-145) Potassium Level 3.7 MMOL/L (3.5-5.1) Chloride Level 108 MMOL/L (98-107) H Carbon Dioxide Level 28 MMOL/L (21-32) Anion Gap 5 mmol/L (5-15) Blood Urea Nitrogen 15 mg/dL (7-18) Creatinine 0.7 MG/DL (0.55-1.30) Estimate Glomerular Filtration Rate > 60 mL/min (>60) Glucose Level 92 MG/DL (74-106) Calcium Level 9.0 MG/DL (8.5-10.1) Total Bilirubin 0.5 MG/DL (0.2-1.0) Aspartate Amino Transferase (AST) 13 U/L (15-37) L Alanine Aminotransferase (ALT) 21 U/L (12-78) Alkaline Phosphatase 49 U/L (46-116) Total Protein 6.5 G/DL (6.4-8.2) Albumin 3.7 G/DL (3.4-5.0) Globulin 2.8 g/dL Albumin/Globulin Ratio 1.3 (1.0-2.7) Lipase 142 U/L (73-393) EKG Diagnostic Results EKG Time: 11:25 EP Interpretation: Sinus bradycardia, rate 50, QTc 404, no acute ST elevations , left axis dev Chest X-Ray Diagnostic Results Chest X-Ray Diagnostic Results : Chest X-Ray Ordered: Yes # of Views/Limited/Complete: 1 View Indication: Other - preop EP Interpretation: Yes Interpretation: no consolidation, no effusion, no pneumothorax, no acute cardiopulmonary disease Impression: No acute disease Electronically Signed by: Gamaliel Claudio MD CT/MRI/US Diagnostic Results CT/MRI/US Diagnostic Results : Impression Procedure: CT Abdomen Pelvis w/Contrast EXAM: CT Abdomen and Pelvis With Intravenous Contrast CLINICAL HISTORY: ABD PAIN TECHNIQUE: Axial computed tomography images of the abdomen and pelvis with intravenous contrast. CTDI is 13.88 mGy and DLP is 680 mGy-cm. One or more of the following dose reduction techniques were used: automated exposure control, adjustment of the mA and/or kV according to patient size, use of iterative reconstruction technique. COMPARISON: No relevant prior studies available. FINDINGS: Lung bases: Unremarkable. ABDOMEN: Liver: Heterogeneous liver. Vague poorly focus in the right lobe, probably small hemangioma about 9 mm Gallbladder and bile ducts: No calcified stones. No ductal dilation. Pancreas: Unremarkable. Spleen: Unremarkable. Adrenals: Unremarkable. Kidneys and ureters: Right renal cyst measuring approximately 14 mm. Left pelvocaliectasis. Stomach and bowel: No belinda mural thickening. Nonobstructive bowel gas pattern. PELVIS: Appendix: No findings to suggest acute appendicitis. Bladder: Unremarkable. Reproductive: Hysterectomy. ABDOMEN and PELVIS: Intraperitoneal space: Unremarkable. Bones/joints: No acute fracture. Soft tissues: Unremarkable. Vasculature: Unremarkable. No abdominal aortic aneurysm. Lymph nodes: No enlarged lymph nodes. IMPRESSION: No acute inflammatory process. Dictated By: Chrissy Talamantes MD Electronically Signed By: Chrissy Talamantes MD Signed Date/Time 07/04/19 1219 CC: Gamaliel Claudio MD Last Vital Signs Date Time Temp Pulse Resp B/P (MAP) Pulse Ox O2 Delivery O2 Flow Rate FiO2 07/04/19 11:17 98.1 64 18 108/72 100 Room Air Disposition: HOME, SELF-CARE Condition: Stable Scripts Hydrocodone Bit/Acetaminophen 5-325* (NORCO 5-325*) 1 Each Tablet 1 TAB ORAL Q6H PRN for For Pain, #12 TAB 0 Refills Prov: Gamaliel Claudio MD 07/04/19 Naproxen* (NAPROSYN*) 250 Mg Tablet 250 MG ORAL BID PRN for For Pain, #20 TAB 0 Refills Prov: Gamaliel Claudio MD 07/04/19 Referrals: [facility] Patient Instructions: Hydronephrosis Additional Instructions: The patient was provided with discharge instructions, notified to follow-up with a primary care doctor and or specialist in the next 24-48 hours, and to return to the ED if they have worsening of their symptoms. Please note that this report is being documented using [employer] technology. This can lead to erroneous entry secondary to incorrect interpretation by the dictating instrument. FOLLOW-UP WITH YOUR UROLOGIST. Gamaliel Claudio MD Jul 04, 2019 11:21
[2019-07-04 11:25] LABS: BASOPHILS % (AUTO) 1.4 % (0.0-2.0); HEMATOCRIT 43.3 % (37.0-47.0); HEMOGLOBIN 14.3 G/DL (12.0-16.0); LYMPHOCYTES % (AUTO) 33.7 % (20.0-45.0); MEAN CORPUSCULAR VOLUME 95 FL (80-99); MONOCYTES % (AUTO) 7.5 % (1.0-10.0); NEUTROPHILS % (AUTO) 56.3 % (45.0-75.0); PLATELET COUNT 196 K/UL (150-450); RED BLOOD COUNT 4.55 M/UL (4.20-5.40); RED CELL DISTRIBUTION WIDTH 11.9 % (11.6-14.8); WHITE BLOOD COUNT 7.5 K/UL (4.8-10.8)
[2019-07-04 11:25] LABS: APPEARANCE,URINE CLEAR; BILIRUBIN, URINE NEGATIVE (NEGATIVE); COLOR,URINE PALE YELLOW; GLUCOSE, URINE (UA) NEGATIVE (NEGATIVE); KETONES,URINE NEGATIVE (NEGATIVE); LEUKOCYTE ESTERASE ,URINE 1+ (NEGATIVE); NITRITE,URINE NEGATIVE (NEGATIVE); PH,URINE 8 (4.5-8.0); PROTEIN,URINE NEGATIVE (NEGATIVE); UROBILINOGEN,URINE NORMAL MG/DL (0.0-1.0)
--- NOTE | 2019-07-04 11:27 | NUR ---
ED Nurse Note: RADIOLOGY CALLED FOR CT.
[2019-07-04 11:35] LABS: ANION GAP 5 mmol/L (5-15); BLOOD UREA NITROGEN 15 mg/dL (7-18); CARBON DIOXIDE 28 MMOL/L (21-32); CHLORIDE 108 MMOL/L (98-107); CREATININE 0.7 MG/DL (0.55-1.30); POTASSIUM 3.7 MMOL/L (3.5-5.1); SODIUM 141 MMOL/L (136-145)
[2019-07-04 11:42] LABS: ALANINE AMINOTRANSFERASE 21 U/L (12-78); ALBUMIN 3.7 G/DL (3.4-5.0); ALBUMIN/GLOBULIN RATIO 1.3 (1.0-2.7); ALKALINE PHOSPHATASE 49 U/L (46-116); ASPARTATE AMINO TRANSFERASE 13 U/L (15-37); BILIRUBIN,TOTAL 0.5 MG/DL (0.2-1.0)
--- NOTE | 2019-07-04 11:43 | Diagnostic Imaging Report ---
EXAM: XR Chest, 1 View CLINICAL HISTORY: ABD PAIN TECHNIQUE: Frontal view of the chest. COMPARISON: No relevant prior studies available. FINDINGS: Lungs: No consolidation. Pleural space: Unremarkable. No pneumothorax. Heart: Mild cardiomegaly. Mediastinum: Unremarkable. Bones/joints: No acute fracture. IMPRESSION: No acute findings.
--- NOTE | 2019-07-04 11:54 | NUR ---
ED Nurse Note: PT TO CT VIA JUNIOR.
--- NOTE | 2019-07-04 12:06 | NUR ---
ED Nurse Note: PT BACK FROM CT VIA JUNIOR.
[2019-07-04] MEDS ORDERED: NORCO 5-325 TA1 EACH ORAL (12:16)
[2019-07-04] MEDS ORDERED: NAPROXEN250 MG ORAL (12:16)
--- NOTE | 2019-07-04 12:20 | Diagnostic Imaging Report ---
EXAM: CT Abdomen and Pelvis With Intravenous Contrast CLINICAL HISTORY: ABD PAIN TECHNIQUE: Axial computed tomography images of the abdomen and pelvis with intravenous contrast. CTDI is 13.88 mGy and DLP is 680 mGy-cm. One or more of the following dose reduction techniques were used: automated exposure control, adjustment of the mA and/or kV according to patient size, use of iterative reconstruction technique. COMPARISON: No relevant prior studies available. FINDINGS: Lung bases: Unremarkable. ABDOMEN: Liver: Heterogeneous liver. Vague poorly focus in the right lobe, probably small hemangioma about 9 mm Gallbladder and bile ducts: No calcified stones. No ductal dilation. Pancreas: Unremarkable. Spleen: Unremarkable. Adrenals: Unremarkable. Kidneys and ureters: Right renal cyst measuring approximately 14 mm. Left pelvocaliectasis. Stomach and bowel: No belinda mural thickening. Nonobstructive bowel gas pattern. PELVIS: Appendix: No findings to suggest acute appendicitis. Bladder: Unremarkable. Reproductive: Hysterectomy. ABDOMEN and PELVIS: Intraperitoneal space: Unremarkable. Bones/joints: No acute fracture. Soft tissues: Unremarkable. Vasculature: Unremarkable. No abdominal aortic aneurysm. Lymph nodes: No enlarged lymph nodes. IMPRESSION: No acute inflammatory process.
--- NOTE | 2019-07-04 12:32 | NUR ---
ED Nurse Note: PT LAYING PEACEFULLY IN BED IN NAD. AOX4. PRESCRIPTIONS AND DISCHARGE PAPERWORK EXPLAINED TO PT. PT VERBALIZES UNDERSTANDING AND ALL QUESTIONS ANSWERED. PRESCRIPTIONS AND DISCHARGE PAPERWORK GIVEN TO PT, IV AND ID WRISTBAND REMOVED. PT WALKED OUT OF ER WITH STEADY GAIT AND ALL BELONGINGS.
[2019-07-04 12:33] VITALS: BP 110/76
== END 2019-07-04 12:32 | disposition home or self-care (01) ==
LOC: EMR 11:10
DX: R10.9 Unspecified abdominal pain (principal); N28.1 Cyst of kidney, acquired; Z90.710 Acquired absence of both cervix and uterus; I51.7 Cardiomegaly
CPT/HCPCS: 36415; 71045; 74177; 80053; 81003; 83690; 85025; 93005; 96361; 96374; 99284; J1885; Q9967